=== PATIENT | female | born 1995 | race African-American/Black ===

== ENCOUNTER 2017-08-06 22:56 | Emergency (ER) | payer MEDICAID ==
[~2017-08-06] VITALS: Ht 167.6 cm; Wt 70.0 kg
[2017-08-06] MEDS ORDERED: ONDANSETRON ODT 4 MG ONE (23:56)
[2017-08-06] MEDS ORDERED: HYDROcodone/APAP 5/325 TABLET ONE (23:56)
[2017-08-07] MEDS ORDERED: HYDROcodone/APAP 5/325 TABLET PO ONE
[2017-08-07] MEDS ORDERED: ONDANSETRON ODT 8 MG PO ONE
[2017-08-07 00:10] LABS: HEMATOCRIT 34.2 % (34.6-47.8); WHITE BLOOD COUNT 7.5 x10^3/uL (3.4-10)
[2017-08-07 00:43] LABS: ASPARTATE AMINO TRANSFERASE 15 U/L (15-37); BLOOD UREA NITROGEN 18 mg/dL (7-18)
[2017-08-07 00:43] LABS: HCG UR OBC PASS
[2017-08-07 01:35] VITALS: BP 101/63
== END 2017-08-07 01:36 | disposition home or self-care (01) ==
LOC: ED 23:59
DX: R10.9 Unspecified abdominal pain (principal); I10 Essential (primary) hypertension; F17.200 Nicotine dependence, unspecified, uncomplicated
CPT/HCPCS: 36415; 80053; 81001; 81025; 83690; 85025; 87086; 93005; 99285; Q0162